=== PATIENT | female | born 1980 | race Hispanic/Latino ===

== ENCOUNTER 2017-07-30 14:08 | Emergency (ER) | payer BC ==
[~2017-07-30] VITALS: Ht 157.5 cm; Wt 63.5 kg
[2017-07-30] MEDS ORDERED: ALLEGRA ALLERG180 MG PO (14:29)
[2017-07-30] MEDS ORDERED: KEFLEX500 MG PO (15:33)
[2017-07-30] MEDS ORDERED: ZOFRAN ODT4 MG PO (15:33)
== END 2017-07-30 15:56 | disposition home or self-care (01) ==
LOC: ED 14:08
DX: R42 Dizziness and giddiness (principal); R11.0 Nausea; Z79.899 Other long term (current) drug therapy
CPT/HCPCS: 80053; 81001; 84703; 85025; 99283

== ENCOUNTER 2019-01-04 23:42 | Inpatient (IN) | payer BC ==
[~2019-01-04] VITALS: Ht 157.5 cm; Wt 70.0 kg
--- NOTE | ~2019-01-04 | OR ---
[facility] [address] [place], [place] [address] Draft DATE OF OPERATION: 01/05/2019 SURGEON: Deanna Sauceda MD CELLAR WORKER: Waylon Bruner MD PREOPERATIVE DIAGNOSES: Term , previous section, active labor with spontaneous rupture of membranes. POSTOPERATIVE DIAGNOSES: Term , previous section, active labor with spontaneous rupture of membranes, delivered. PROCEDURE PERFORMED: Repeat section with low segment transverse uterine incision. ANESTHESIA: Spinal. ESTIMATED BLOOD LOSS: 700 mL. DRAINS: Clements catheter. INDICATIONS AND FINDINGS: The patient is a 38-year-old female, 4, para 2, SAB 1, who was admitted at 38-6/7th weeks with spontaneous rupture of membranes in active labor. The patient had been scheduled for repeat section the following day. She was counseled and a decision was made to proceed with repeat section. She was taken to the operating room, where she was delivered of a little boy from the ROP position with Apgars of 8 and 9, and a weight of 6 pounds 7 ounces. The uterus, tubes, ovaries, and placenta appeared normal. DESCRIPTION OF PROCEDURE: The patient was prepped and draped in the supine position. The prior Pfannenstiel scar was removed. The incision was carried down through the fascia. The incision was extended laterally. The inferior and superior fascial flaps were then created. Muscles PATIENT NAME: MARIO GUTIERREZ OPERATIVE REPORT DATE OF : 76 REPORT #: [id number] PHYSICIAN: DEANNA SAUCEDA MD PCP: NO PRIMARY CARE PHYSICIAN REPORT IS CONFIDENTIAL AND NOT TO BE RELEASED WITHOUT AUTHORIZATION [facility] [address] [place], [place] [address] Draft were bluntly divided and the peritoneum entered bluntly and the incision extended superiorly and inferiorly. The Gold retractor was then placed. The uterus was then entered at the upper aspect of the peritoneal reflection. The baby was delivered with the above findings and handed off to the pediatric staff in attendance. The placenta was removed manually and the uterus explored with a lap tape assuring no remaining fragments. The edges of the incision were identified and the uterus closed in 2 layers using #0 Monocryl. The first layer was a running locking stitch and the second was a vertical imbricating stitch. The abdomen was copiously irrigated and inspected, and good hemostasis was noted. The retractor was removed and the peritoneum was identified. An ACell graft was then laid over the lower segment to aid in healing. The peritoneum was then closed in a running suture of 3-0 Vicryl. The muscles were brought together with interrupted sutures of 0 Vicryl. Bleeding points were controlled with cautery. ACell powder was sprinkled over the muscles to aid in healing. The fascia was then closed from each angle to the midline with a running suture of 0 Vicryl. The subcutaneous space was irrigated and bleeding points controlled with cautery. The subcu was reapproximated with interrupted sutures of 3-0 Vicryl followed by garo. All sponge and needle counts were correct. She tolerated procedure well and was taken to the recovery room in good condition. Deanna Sauceda MD PJW/MODL /[id number] cc: Waylon Bruner MD Copies: WAYLON BRUNER MD ~ PATIENT NAME: MARIO GUTIERREZ ROMINA OPERATIVE REPORT DATE OF : 76 REPORT #: [id number] PHYSICIAN: DEANNA SAUCEDA MD PCP: NO PRIMARY CARE PHYSICIAN REPORT IS CONFIDENTIAL AND NOT TO BE RELEASED WITHOUT AUTHORIZATION
[~2019-01-04 23:42] MED LIST: ALLEGRA ALLERG180 MG PO; KEFLEX500 MG PO; ZOFRAN ODT4 MG PO
--- NOTE | 2019-01-05 01:45 | NUR ---
01/05/19 0145 [address] 0133 PT ARRIVED TO ROOM FROM OR. PT AWAKE TALKING WITH . BP NOTED TO BE LOW. PT DENIES PAIN AND NAUSEA. FUNDAL CHECK COMPLETE. FBC RN IN ROOM. WILL CONTINUE TO MONITOR.
--- NOTE | 2019-01-06 12:23 | PR ---
[facility] [address] [place] [address] Signed PP Progress Notes Datetime Report Generated by CPN: 01/06/2019 12:23 SUBJECTIVE: [id number] Pain: Within normal limits Pain Comments: showered this am Nausea/Vomiting: Denies Flatus: No Vital Signs: [id number] Vital Signs: Reviewed; Within Normal Limits EXAM: [id number] Cardiovascular: Normal Respiratory: Not Done Abdomen/Uterus: Abnormal Lochia: Normal Vulva/Perineum: Not Done Breasts: Not Done CVA Tenderness: Not Done Extremities: Normal Incision: Normal Progress: Normal Exam Comments: Abdomen with active BS. Fundus firm, NT @ U-1. H/H 9.8/29.1, WBC 12.4, plat 218k IMPRESSION/PLAN/PROCEDURES: [id number] Impression: Normal progression Other Plans: ambulation Progress Notes: Doing well. Will increase ambulation with probable D/C home tomorrow. Signing Physician: Deanna Sauceda MD Copies: ~ *Electronically Signed* 01/06/19 1223 DEANNA SAUCEDA MD PATIENT NAME: MARIO GUTIERREZ PROGRESS NOTE DATE OF : 76 PHYSICIAN: DEANNA SAUCEDA MD RPT #: [id number] REPORT IS CONFIDENTIAL AND NOT TO BE RELEASED WITHOUT AUTHORIZATION
--- NOTE | 2019-01-07 08:38 | PR ---
[facility] [address] [facility] [place], [place] [address] Signed PP Progress Notes Datetime Report Generated by CPN: 01/07/2019 08:38 SUBJECTIVE: [id number] Pain: Within normal limits Pain Comments: showered this am Nausea/Vomiting: Denies Flatus: Yes Bowel Movement: Yes Vital Signs: [id number] Vital Signs: Reviewed; Within Normal Limits EXAM: [id number] Cardiovascular: Normal Respiratory: Normal Abdomen/Uterus: Abnormal Lochia: Normal Vulva/Perineum: Not Done Breasts: Not Done CVA Tenderness: Not Done Extremities: Normal Incision: Normal Progress: Normal Exam Comments: Abdomen with active BS. Fundus firm, NT @ U-1. IMPRESSION/PLAN/PROCEDURES: [id number] Impression: Normal progression Plan: Remove garo; Discharge Other Plans: ambulation Procedures: None Progress Notes: Doing well. She is ready for D/C. Signing Physician: Deanna Sauceda MD Copies: ~ *Electronically Signed* 01/07/19 0838 DAENNA SAUCEDA MD PATIENT NAME: MARIO GUTIERREZ PROGRESS NOTE DATE OF : 76 PHYSICIAN: DEANNA SAUCEDA MD RPT #: [id number] REPORT IS CONFIDENTIAL AND NOT TO BE RELEASED WITHOUT AUTHORIZATION
== END 2019-01-07 10:55 | disposition home or self-care (01) | DRG 788 ==
LOC: FBCO 23:42 → FBC 23:45
PROVIDERS: ADMIT Obstetrics & Gynecology
PROC: 10D00Z1 Extraction of Products of Conception, Low, Open Approach (ICD-10-PCS; principal; 2019-01-05 00:50)
DX: O34.211 Maternal care for low transverse scar from previous cesarean delivery (principal); N85.8 Other specified noninflammatory disorders of uterus; Z3A.38 38 weeks gestation of pregnancy; Z37.0 Single live birth; O99.824 Streptococcus B carrier state complicating childbirth; O34.43 Maternal care for other abnormalities of cervix, third trimester; N84.1 Polyp of cervix uteri
CPT/HCPCS: 01961; 36415; 85027; J0690; J2274; J2405; J2590

== ENCOUNTER 2023-02-21 16:44 | Emergency (ER) | payer BC ==
[~2023-02-21] VITALS: Ht 157.5 cm; Wt 66.0 kg
[2023-02-21 21:26] VITALS: BP 125/89
== END 2023-02-21 21:27 | disposition home or self-care (01) ==
LOC: ED 16:44
DX: H53.413 Scotoma involving central area, bilateral (principal); Z79.899 Other long term (current) drug therapy
CPT/HCPCS: 36415; 70496; 70498; 80053; 81003; 84703; 85025; 99284-25; Q9967